=== PATIENT | female | born 1950 | race Two or more races ===

== ENCOUNTER → 2022-01-31 | Emergency (ER) | payer OTHER ==
[~2022-01-31] VITALS: Ht 166.4 cm; Wt 76.2 kg
[~2022-01-31] MED LIST: ATORVASTATIN CA20 MG PO; LAMICTAL200 MG PO; LEVO-T25 MCG PO; LOSARTAN POTASS50 MG PO; METOPROLOL SUCC25 MG PO
== END | disposition home or self-care (01) ==
LOC: ER 11:38
DX: S30.0XXA Contusion of lower back and pelvis, initial encounter (principal); S20.219A Contusion of unspecified front wall of thorax, initial encounter; V49.9XXA Car occupant (driver) (passenger) injured in unspecified traffic accident, initial encounter; Y93.9 Activity, unspecified; Y92.413 State road as the place of occurrence of the external cause; Y99.9 Unspecified external cause status; M54.2 Cervicalgia